=== PATIENT | male | born 2000 | race Caucasian/White ===

== ENCOUNTER 2020-01-17 12:24 | Emergency (ER) | payer SELFPAY ==
[~2020-01-17] VITALS: Ht 180.3 cm; Wt 70.5 kg
[2020-01-17 12:53] VITALS: BP 116/69; TEMP 98.9
[2020-01-17] MEDS ORDERED: ZOLOFT 25MG25 MG PO (12:58)
[2020-01-17] MEDS ORDERED: ATARAX50 MG PO (12:59)
[2020-01-17] MEDS ORDERED: CRUTCHES MC (13:40)
[2020-01-17 14:11] VITALS: PULSE 64
== END 2020-01-17 14:19 | disposition home or self-care (01) ==
LOC: COL.ER 12:24
DX: S97.82XA Crushing injury of left foot, initial encounter (principal); F17.200 Nicotine dependence, unspecified, uncomplicated; F32.9 Major depressive disorder, single episode, unspecified; W20.8XXA Other cause of strike by thrown, projected or falling object, initial encounter; Y99.0 Civilian activity done for income or pay; Y92.9 Unspecified place or not applicable
CPT/HCPCS: J2405; J3010; Q4041